=== PATIENT | male | born 1995 | race Caucasian/White ===

== ENCOUNTER 2017-08-03 16:47 | Emergency (ER) | payer OTHER ==
[2017-08-03 16:49] VITALS: TEMP 36.8; Ht 185.4 cm
[2017-08-03] MEDS ORDERED: IBUPROFEN 600 MG TAB PO STA (17:05)
--- NOTE | 2017-08-03 17:51 | DIAGNOSTIC IMAGING REPORT ---
L TIBIA/FIBULA 2 VIEWS ROUTINE CLINICAL HISTORY: Pain status post trauma COMPARISON: Left ankle dated 08/03/2017 DISCUSSION: There is a nondisplaced longitudinal oblique fracture of the fibula, beginning at approximately the junction of the middle and distal one third. There is no associated tibial fracture. IMPRESSION: Nondisplaced longitudinal fracture of the fibula, beginning at approximately the junction of the middle and distal one third Electronically signed by: Riley Newman M.D. 08/03/2017 5:49 PM Dictated Date/Time: 08/03/2017 5:47 PM
--- NOTE | 2017-08-03 17:52 | DIAGNOSTIC IMAGING REPORT ---
L ANKLE MIN 3 VIEWS ROUTINE CLINICAL HISTORY: Left ankle pain status post trauma COMPARISON: None. DISCUSSION: There is a nondisplaced oblique/longitudinal fracture of the fibula, beginning at approximately the junction of middle distal one third. No tibial fractures are visualized. The ankle mortise appears intact. IMPRESSION: Nondisplaced longitudinal fracture of the fibula Electronically signed by: Riley Newman M.D. 08/03/2017 5:50 PM Dictated Date/Time: 08/03/2017 5:50 PM
[2017-08-03] MEDS ORDERED: OXYC1TAB3 PO (17:56)
[2017-08-03] MEDS ORDERED: OXYCODONE IR HOME PACK PO ONE (18:00)
[2017-08-03 18:49] VITALS: BP 178/102; PULSE 108; O2SAT 98
--- NOTE | 2017-08-03 18:54 | EMERGENCY ROOM VISIT NOTE ---
History Report prepared by Oralia: Radha Francis Under the Supervision of: Dr. Leonard Penaloza M.D. First contact with patient: 17:00 Chief Complaint: ANKLE PAIN Stated Complaint: LOUD POP IN ANKLE History of Present Illness The patient is a 22 year old male who presents to the Emergency Room with complaints of an episode of a left ankle injury beginning just prior to arrival. The patient states he rolled his left ankle backwards when he was sliding [place]. The patient reports hearing a loud pop when it happened. He denies any knee pain.The patient states he is unable to put weight on his left foot. He denies any other injuries. He has some head pain or neck pain. Source of History: patient Onset: just prior to arrival Position: ankle (left) Quality: other (injury) Timing: other (episode) Modifying Factors (Relieving): other (none) Associated Symptoms: No headache, No neck pain, No weakness, No numbness Note: The patient denies any knee pain. Review of Systems See HPI for pertinent positives & negatives. A total of 6 systems reviewed and were otherwise negative. Past Medical & Surgical Medical Problems: (1) No Known Active Medical Problems Family History No pertinent family history stated. Social History Smoking Status: Never Smoker Housing Status: lives with family Occupation Status: student Current/Historical Medications Scheduled PRN Oxycodone Ir (Roxicodone Ir), 5 MG PO Q4H PRN for Pain Allergies Coded Allergies: No Known Allergies (Unverified , 08/03/17) Physical Exam Vital Signs Date Time Temp Pulse Resp B/P (MAP) Pulse Ox O2 Delivery O2 Flow Rate FiO2 08/03/17 18:49 108 178/102 98 08/03/17 16:49 36.8 112 20 123/75 97 Room Air Physical Exam Constitutional: Vital signs reviewed. Respiratory: Clear to auscultation bilaterally. Breath sounds are equal bilaterally. Cardiovascular: Regular rate and rhythm. No rubs or gallops. GI: Soft, nondistended and nontender. Bowel sounds are present. Musculoskeletal: Tenderness to malleoli left ankle, normal distal pulses, no tenderness to left knee or foot. Integumentary: No cyanosis. Neurological: The patient is awake and alert. No focal deficits. Psychiatric: Normal affect. Medical Decision & Procedures ER Provider Diagnostic Interpretation: Radiology results as stated below per my review and the radiologist's interpretation: L ANKLE MIN 3 VIEWS ROUTINE DISCUSSION: There is a nondisplaced oblique/longitudinal fracture of the fibula, beginning at approximately the junction of middle distal one third. No tibial fractures are visualized. The ankle mortise appears intact. IMPRESSION: Nondisplaced longitudinal fracture of the fibula Electronically signed by: Riley Newman M.D. L TIBIA/FIBULA 2 VIEWS ROUTINE DISCUSSION: There is a nondisplaced longitudinal oblique fracture of the fibula, beginning at approximately the junction of the middle and distal one third. There is no associated tibial fracture. IMPRESSION: Nondisplaced longitudinal fracture of the fibula, beginning at approximately the junction of the middle and distal one third Electronically signed by: Riley Newman M.D. Medications Administered Medications (Trade) Dose Ordered Sig/Samson Route Start Time Stop Time Status Last Admin Dose Admin Ibuprofen (Motrin Tab) 600 mg NOW STAT PO 08/03/17 17:05 08/03/17 17:06 DC 08/03/17 17:11 600 MG Oxycodone HCl (Roxicodone Immediate Rel 5MG Home Pack) 1 homepack UD ONCE PO 08/03/17 18:00 08/03/17 18:01 DC 08/03/17 18:11 1 HOMEPACK ED Course 1703: The patient was evaluated in room C11B. A complete history and physical exam was performed. 1705: Ordered Ibuprofen 600 mg PO. 1753: I discussed test results with the patient and his father. He will follow up with orthopedics. 1800: Ordered Oxycodone HCL homepack PO. 1804: Upon reevaluation, the patient appeared to have improvement of his symptoms. I discussed tonight's findings with the patient. He verbalized agreement of the treatment plan. The patient was discharged home. Medical Decision This is a 22-year-old male who presents with pain to his ankle. Differential diagnosis includes ankle sprain, fracture, contusion. I did perform a limited focused review of portions of the patient's old chart on the electronic medical record. The patient has had no recent pertinent visits to this hospital. I did evaluate the patient as noted above. I did treat the patient with Motrin. I did order x-rays of the left ankle and tib-fib. I did review the images myself as well as the radiology report as described above. He does have a distal fibular fracture. I did discuss the test results with the patient and his father. He was placed in an Ortho-Glass splint and given crutches. He was given oxycodone for pain and discharged with a prescription. He will follow up with orthopedics next week. [place] Drug Monitoring Program Search Results: patient reviewed within database, no issues identified Blood Pressure Screening Patient's blood pressure: Elevated blood pressure Blood pressure disposition: Elevated BP felt to be situational Impression Primary Impression: Fracture of distal fibula Scribe Attestation The scribe's documentation has been prepared under my direct and personally reviewed by me in its entirety. I confirm that the note above accurately reflects all work, treatment, procedures, and medical decision making performed by me. Departure Information Dispostion Home / Self-Care Prescriptions Oxycodone Ir (Roxicodone Ir) 5 Mg Tab 5 MG PO Q4H Y for Pain, #20 TAB Prov: Leonard Penaloza M.D. 08/03/17 Referrals Noe Sebastian M.D. (PCP) Forms HOME CARE DOCUMENTATION FORM, IMPORTANT VISIT INFORMATION Patient Instructions Ankle Fx, My [facility] Additional Instructions You have been examined and treated today on an emergency basis only. This is not a substitute for, or an effort to provide, complete comprehensive medical care. It is impossible to recognize and treat all injuries or illnesses in a single emergency department visit. It is therefore important that you follow up closely with an orthopedic physician. Call as soon as possible for an appointment. Return for worsening symptoms or if you develop numbness or weakness to your toes, discoloration to your feet or any other concerning symptoms. Problem Qualifiers Primary Impression: Fracture of distal fibula Encounter type: initial encounter Fracture type: closed Fracture morphology : other fracture Laterality: left Qualified Codes: S82.832A - Other fracture of upper and lower end of left fibula, initial encounter for closed fracture
== END 2017-08-03 18:51 | disposition home or self-care (01) ==
LOC: C.EDB 16:50 → C.EDC 18:51
DX: S82.832A Other fracture of upper and lower end of left fibula, initial encounter for closed fracture (principal); X50.9XXA Other and unspecified overexertion or strenuous movements or postures, initial encounter